=== PATIENT | female | born 1990 | race Caucasian/White ===

== ENCOUNTER 2016-08-04 13:28 | Emergency (ER) | payer OTHER ==
[2016-08-04 13:33] VITALS: BP 139/8
== END 2016-08-04 14:39 | disposition home or self-care (01) ==
LOC: ED 13:28
DX: T36.0X1A Poisoning by penicillins, accidental (unintentional), initial encounter (principal); M54.5 Low back pain; G89.29 Other chronic pain; Y92.89 Other specified places as the place of occurrence of the external cause

== ENCOUNTER 2018-06-30 22:41 | Emergency (ER) | payer OTHER ==
[~2018-06-30] VITALS: Ht 157.5 cm; Wt 81.6 kg
[2018-07-01 00:29] VITALS: BP 122/74
== END 2018-07-01 00:29 | disposition home or self-care (01) ==
LOC: ED 22:41
DX: K29.60 Other gastritis without bleeding (principal); I10 Essential (primary) hypertension; R10.12 Left upper quadrant pain; R10.13 Epigastric pain; K21.9 Gastro-esophageal reflux disease without esophagitis; G89.29 Other chronic pain; Z90.49 Acquired absence of other specified parts of digestive tract

== ENCOUNTER 2018-08-22 01:24 | Emergency (ER) | payer OTHER ==
[~2018-08-22] VITALS: Ht 157.5 cm; Wt 90.3 kg
[2018-08-22 01:34] VITALS: Ht 157.5 cm; Wt 90.3 kg
[2018-08-22 02:28] LABS: BASOPHIL % 0.1 % (0-2); PLATELET COUNT 244 x10^3mcL (130-400); RED CELL DISTRIBUTION WIDTH 12.3 % (11.5-14.5)
[2018-08-22 02:35] LABS: CALCIUM 9.7 mg/dL (8.5-10.1); CARBON DIOXIDE 26.1 mmol/L (21-32); CHLORIDE SERUM 109 mmol/L (98-107); CREATININE SERUM 1.1 mg/dL (0.6-1.0); GFR1 > 60 mL/min; GLUCOSE SERUM 104 mg/dL (74-106); SODIUM SERUM 148 mmol/L (136-145)
[2018-08-22 02:39] LABS: ALKALINE PHOSPHATASE 60 U/L (46-116); ALT/SGPT 43 U/L (14-59); AST/SGOT 33 U/L (15-37); BILIRUBIN TOTAL 0.69 mg/dL (0.20-1.00); LIPASE 58 IU/L (73-393)
[2018-08-22 02:40] LABS: TOTAL PROTEIN, SERUM 8.4 g/dL (6.4-8.2)
[2018-08-22 04:25] VITALS: BP 119/73
== END 2018-08-22 04:25 | disposition home or self-care (01) ==
LOC: ED 01:24
PROVIDERS: Emergency Medicine
DX: K52.9 Noninfective gastroenteritis and colitis, unspecified (principal); G89.29 Other chronic pain; M54.9 Dorsalgia, unspecified
CPT/HCPCS: J2405; J7030

== ENCOUNTER 2018-09-03 10:36 | Emergency (ER) | payer OTHER ==
[~2018-09-03] VITALS: Ht 167.6 cm; Wt 91.6 kg
[2018-09-03 10:39] VITALS: Ht 167.6 cm; Wt 91.6 kg
[2018-09-03 11:18] VITALS: BP 126/78
== END 2018-09-03 11:18 | disposition home or self-care (01) ==
LOC: ED 10:36
DX: R10.13 Epigastric pain (principal); R11.0 Nausea
CPT/HCPCS: Q0162

== ENCOUNTER 2019-01-11 08:20 | Emergency (ER) | payer SELFPAY ==
[~2019-01-11] VITALS: Ht 157.5 cm; Wt 86.6 kg
[2019-01-11 08:24] VITALS: Ht 157.5 cm; Wt 86.6 kg
== END 2019-01-11 09:45 | disposition home or self-care (01) ==
LOC: ED 08:20
DX: S46.911A Strain of unspecified muscle, fascia and tendon at shoulder and upper arm level, right arm, initial encounter (principal); G89.29 Other chronic pain; M54.9 Dorsalgia, unspecified; Z90.49 Acquired absence of other specified parts of digestive tract; X58.XXXA Exposure to other specified factors, initial encounter; Y93.89 Activity, other specified; Y92.89 Other specified places as the place of occurrence of the external cause; Y99.8 Other external cause status

== ENCOUNTER 2019-01-17 14:40 | Emergency (ER) | payer SELFPAY ==
[~2019-01-17] VITALS: Ht 157.5 cm; Wt 87.3 kg
[2019-01-17 15:16] VITALS: BP 140/103; Ht 157.5 cm; Wt 87.3 kg
== END 2019-01-17 16:10 | disposition left against medical advice (07) ==
LOC: ED 14:40
DX: Z53.21 Procedure and treatment not carried out due to patient leaving prior to being seen by health care provider (principal)

== ENCOUNTER 2019-01-18 08:24 | Emergency (ER) | payer SELFPAY ==
[~2019-01-18] VITALS: Ht 157.5 cm; Wt 87.1 kg
[2019-01-18 08:26] VITALS: Ht 157.5 cm; Wt 87.1 kg
[2019-01-18 08:50] VITALS: BP 123/90
== END 2019-01-18 08:50 | disposition home or self-care (01) ==
LOC: ED 08:24
DX: M25.511 Pain in right shoulder (principal); G89.29 Other chronic pain; M54.9 Dorsalgia, unspecified; Z90.49 Acquired absence of other specified parts of digestive tract

== ENCOUNTER 2019-01-27 18:22 | Emergency (ER) | payer OTHER ==
[~2019-01-27] VITALS: Ht 157.5 cm; Wt 81.6 kg
[2019-01-27 18:34] VITALS: Ht 157.5 cm; Wt 81.6 kg
[2019-01-27 22:02] VITALS: BP 160/88
== END 2019-01-27 22:02 | disposition home or self-care (01) ==
LOC: ED 18:22
DX: M94.0 Chondrocostal junction syndrome [Tietze] (principal); R03.0 Elevated blood-pressure reading, without diagnosis of hypertension; F17.200 Nicotine dependence, unspecified, uncomplicated; G89.29 Other chronic pain; Z90.49 Acquired absence of other specified parts of digestive tract
CPT/HCPCS: 99406; Q0092

== ENCOUNTER 2019-03-09 20:40 | Emergency (ER) | payer OTHER ==
[~2019-03-09] VITALS: Ht 157.5 cm; Wt 88.5 kg
[2019-03-09 21:05] VITALS: Ht 157.5 cm; Wt 88.5 kg
[2019-03-09 23:20] VITALS: BP 127/86
== END 2019-03-09 23:20 | disposition home or self-care (01) ==
LOC: ED 20:40
DX: R51 Headache (principal); G89.29 Other chronic pain; Z90.49 Acquired absence of other specified parts of digestive tract
CPT/HCPCS: J1885

== ENCOUNTER 2019-06-06 08:39 | Emergency (ER) | payer OTHER ==
[~2019-06-06] VITALS: Ht 157.5 cm; Wt 93.1 kg
[2019-06-06 08:45] VITALS: BP 130/88; Ht 157.5 cm; Wt 93.1 kg
== END 2019-06-06 09:46 | disposition home or self-care (01) ==
LOC: ED 08:39
DX: B34.9 Viral infection, unspecified (principal); Z90.49 Acquired absence of other specified parts of digestive tract